=== PATIENT | female | born 1955 | race Caucasian/White ===

== ENCOUNTER 2022-06-30 09:05 | Outpatient (CLI) | payer MEDICARE, OTHER | END 2022-06-30 09:06 | disposition home or self-care (01) | LOC: LABBT 09:05 | PROVIDERS: ATTEND Surgery | DX: Z01.810 Encounter for preprocedural cardiovascular examination (principal); M50.122 Cervical disc disorder at C5-C6 level with radiculopathy; M48.02 Spinal stenosis, cervical region; Z20.822 Contact with and (suspected) exposure to COVID-19 | CPT/HCPCS: 80048; 85027; 85610; 85730; 86850; 86900; 86901; 87811; 93005; 93010 ==

== ENCOUNTER 2022-07-05 05:51 | Inpatient (IN) | payer MEDICARE, OTHER ==
[2022-06-30 10:59] LABS: Prothrombin Time 10.5 sec (9.5-12.1)
[2022-06-30 11:04] LABS: Anion Gap 13 mmol/L (10-20); BUN (Urea Nitrogen) 15 mg/dL (9.8-20.1); Calc. Creatinine Clearance 0 mL/min (70-130); Calcium 9.1 mg/dL (7.8-10.44); Carbon Dioxide 24 mmol/L (23-31); Chloride 106 mmol/L (98-107); Estimated GFR 90; Glucose 106 mg/dL (80-115); Sodium 139 mmol/L (136-145)
[2022-06-30 11:06] LABS: Hemoglobin 13.1 g/dL (12.0-15.5); Mean Corpuscular HGB CONC 33.6 g/dL (32.0-36.0); Mean Corpuscular Hemoglobin 30.7 pg (27.0-33.0); Mean Corpuscular Volume 91.3 fl (81.6-98.3); Mean Platelet Volume 10.6 fl (7.4-10.4); Platelet Count 248 10x3/uL (150-450); RBC Distribution Width 12.4 % (11.5-14.5); Red Blood Cell (RBC) Count 4.27 10x6/uL (3.90-5.03); White Blood Cell (WBC) Count 6.3 10x3/uL (3.5-10.5)
[2022-07-04 11:38] VITALS: BMI 30.9
[2022-07-05] MEDS ORDERED: Thrombin 5000 UNITS/5 ML VIAL ONE (06:43)
[2022-07-05] MEDS ORDERED: HYDROmorphone 2 MG/ML VIAL ONE (07:07)
[2022-07-05] MEDS ORDERED: Propofol 500 MG/50 ML VIAL ONE ×2 (07:07→08:17)
[2022-07-05] MEDS ORDERED: SUGAMMADEX SODIUM 200 MG/2 ML VIAL ONE (07:07)
[2022-07-05] MEDS ORDERED: CEFAZOLIN 2 GM VIAL ONE (07:18)
[2022-07-05] MEDS ORDERED: Sodium Chloride 0.9% 100 ML ONE (07:19)
[2022-07-05] MEDS ORDERED: Dexamethasone 20 MG/5 ML VIAL ONE (07:36)
[2022-07-05] MEDS ORDERED: ePHEDrine 50 MG/ML VIAL ONE (07:36)
[2022-07-05] MEDS ORDERED: PROPOFOL 200 MG/20 ML VIAL ONE (07:36)
[2022-07-05] MEDS ORDERED: Rocuronium Bromide 10 MG/ML (10ML VIAL) ONE (07:36)
[2022-07-05] MEDS ORDERED: Ondansetron PF 4 MG/2 ML Vial ONE (07:36)
[2022-07-05] MEDS ORDERED: Esmolol 100 MG/10 ML VIAL ONE (07:36)
[2022-07-05] MEDS ORDERED: Ketorolac Tromethamine 30 MG/ML VIAL ONE (07:36)
[2022-07-05] MEDS ORDERED: Lidocaine 1% MPF 2 ML VIAL ONE (07:36)
[2022-07-05] MEDS ORDERED: Phenylephrine 10 MG/ML VIAL ONE (07:36)
[2022-07-05] MEDS ORDERED: Promethazine HCl 25 MG/ML VIAL IVPB PRN (09:09)
[2022-07-05] MEDS ORDERED: Meperidine HCl/PF 25 MG/ML VIAL SLOW IVP PRN (09:09)
[2022-07-05] MEDS ORDERED: HYDROmorphone 2 MG/ML VIAL SLOW IVP PRN (09:09)
[2022-07-05] MEDS ORDERED: Acetaminophen 325 MG TAB PO PRN (09:40)
[2022-07-05] MEDS ORDERED: Morphine 2 MG/ML VIAL SLOW IVP PRN (09:40)
[2022-07-05] MEDS ORDERED: Acetaminophen/Codeine 30-300mg Tablet PO PRN (09:40)
[2022-07-05] MEDS ORDERED: diphenhydrAMINE 25 MG CAP PO PRN (09:40)
[2022-07-05] MEDS ORDERED: Ondansetron PF 4 MG/2 ML Vial IVP PRN (09:40)
[2022-07-05] MEDS ORDERED: hydrALAZINE 20 MG/ML VIAL SLOW IVP PRN (09:42)
[2022-07-05] MEDS ORDERED: Chloraseptic Spray 180 ml Bottle PO PRN (09:43)
[2022-07-05] MEDS ORDERED: Cepastat Lozenges 1 LOZ PO PRN (09:43)
[2022-07-05] MEDS ORDERED: Fentanyl 100 MCG/2 ML VIAL ONE ×2 (09:51→10:37)
[2022-07-05] MEDS ORDERED: tiZANidine HCl 4 MG TAB ONE (10:28)
[2022-07-05] MEDS: tiZANidine HCl 4 MG TAB PO PRN ×2 (10:32→18:18)
[2022-07-05] MEDS ORDERED: Ergocalciferol 1.25 MG(50,000 UNITS) CAP PO SCH (10:45)
[2022-07-05] MEDS: CEFAZOLIN 2 GM in Sodium Chloride 0.9% 100 ML IVPB SCH ×2 (15:52→21:35)
[2022-07-05] MEDS: Sodium Chloride 0.9% 1,000 ML IV SCH (16:58)
[2022-07-05] MEDS: traMADol HCl 50 MG TAB PO PRN (18:18)
[2022-07-05] MEDS: Ketorolac Tromethamine 30 MG/ML VIAL IVP PRN (19:26)
[2022-07-05] MEDS: Promethazine HCl 12.5 MG in Sodium Chloride 0.9% 50 ML IVPB PRN (20:05)
[2022-07-05] MEDS ORDERED: Non-Formulary Item 1 EACH (Cholecalciferol (Vitamin D3) [Vitamin D3] 1,250 MCG Capsule) PO SCH (21:00)
[2022-07-05] MEDS ORDERED: Melatonin 3 MG TAB PO SCH (21:00)
[2022-07-05] MEDS ORDERED: ALPRAZolam 0.25 MG TAB PO SCH ×2 (21:00)
[2022-07-05] MEDS: Melatonin 3 MG TAB PO PRN (21:36)
[2022-07-05] MEDS: ALPRAZolam 0.25 MG TAB PO PRN (21:36)
[2022-07-06] MEDS: Sodium Chloride 0.9% 1,000 ML IV SCH ×2 (04:09→06:04)
[2022-07-06] MEDS: Levothyroxine Sodium 112 MCG TAB PO SCH (06:03)
[2022-07-06] MEDS: Promethazine HCl 12.5 MG in Sodium Chloride 0.9% 50 ML IVPB PRN (06:04)
[2022-07-06] MEDS: CEFAZOLIN 2 GM in Sodium Chloride 0.9% 100 ML IVPB SCH ×3 (06:04→20:49)
[2022-07-06] MEDS: HYDROcodone/Acetaminophen 7.5/325 mg Tablet PO PRN ×3 (06:07→20:45)
[2022-07-06] MEDS ORDERED: [UNRECOGNIZED DRUG - MIXTURE] PO SCH (09:00)
[2022-07-06] MEDS ORDERED: [UNRECOGNIZED DRUG - MIXTURE] PO SCH (09:00)
[2022-07-06] MEDS ORDERED: FLUoxetine HCl 20 MG CAP PO SCH (09:00)
[2022-07-06] MEDS ORDERED: Ezetimibe 10 MG TAB PO SCH (09:00)
[2022-07-06] MEDS ORDERED: [UNRECOGNIZED DRUG - OTHER] PO SCH (09:00)
[2022-07-06] MEDS: Magnesium Oxide 250 MG TAB PO SCH (09:13)
[2022-07-06] MEDS: FLUoxetine HCl 20 MG CAP PO SCH (09:13)
[2022-07-06] MEDS: Ezetimibe 10 MG TAB PO SCH (09:13)
[2022-07-06] MEDS: Icosapent Ethyl 1 GM CAPSULE PO SCH (09:14)
[2022-07-06] MEDS: Ketorolac Tromethamine 30 MG/ML VIAL IVP PRN (17:05)
[2022-07-06] MEDS: tiZANidine HCl 4 MG TAB PO PRN (17:10)
[2022-07-06] MEDS: traMADol HCl 50 MG TAB PO PRN (18:43)
[2022-07-06] MEDS: ALPRAZolam 0.25 MG TAB PO PRN (20:44)
[2022-07-06] MEDS: Melatonin 3 MG TAB PO PRN (20:45)
[2022-07-07] MEDS: Sodium Chloride 0.9% 1,000 ML IV SCH (00:50)
[2022-07-07] MEDS: HYDROcodone/Acetaminophen 7.5/325 mg Tablet PO PRN (04:09)
[2022-07-07] MEDS: Levothyroxine Sodium 112 MCG TAB PO SCH (06:00)
[2022-07-07] MEDS: CEFAZOLIN 2 GM in Sodium Chloride 0.9% 100 ML IVPB SCH (06:00)
[2022-07-07] MEDS ORDERED: Ketorolac Tromethamine 30 MG/ML VIAL IVP SCH (08:15)
[2022-07-07] MEDS: Icosapent Ethyl 1 GM CAPSULE PO SCH (08:41)
[2022-07-07] MEDS: Ezetimibe 10 MG TAB PO SCH (08:43)
[2022-07-07] MEDS: FLUoxetine HCl 20 MG CAP PO SCH (08:43)
[2022-07-07] MEDS: Magnesium Oxide 250 MG TAB PO SCH (08:43)
[2022-07-07 08:46] VITALS: BP 131/76; TEMP 97.3
== END 2022-07-07 10:35 | disposition home or self-care (01) | DRG 472 ==
LOC: SDC 05:51 → T4-B 09:46 → OBSVTOIN 07-06 08:16
PROVIDERS: ADMIT Surgery; ATTEND Surgery
PROC: 0RG20A0 Fusion of 2 or more Cervical Vertebral Joints with Interbody Fusion Device, Anterior Approach, Anterior Column, Open Approach (ICD-10-PCS; principal; 2022-07-05)
PROC: 0RB30ZZ Excision of Cervical Vertebral Disc, Open Approach (ICD-10-PCS; 2022-07-05)
PROC: 00NW0ZZ Release Cervical Spinal Cord, Open Approach (ICD-10-PCS; 2022-07-05)
PROC: 01N10ZZ Release Cervical Nerve, Open Approach (ICD-10-PCS; 2022-07-05)
DX: M48.02 Spinal stenosis, cervical region (principal); G99.2 Myelopathy in diseases classified elsewhere; M54.12 Radiculopathy, cervical region; E78.5 Hyperlipidemia, unspecified; G43.909 Migraine, unspecified, not intractable, without status migrainosus; E03.9 Hypothyroidism, unspecified; F32.A Depression, unspecified; F41.9 Anxiety disorder, unspecified; Z85.3 Personal history of malignant neoplasm of breast; Z92.3 Personal history of irradiation; Z90.710 Acquired absence of both cervix and uterus; Z90.722 Acquired absence of ovaries, bilateral
CPT/HCPCS: 76000; 80048; 85027; 85610; 85730; 86850; 86900; 86901; 87811; 96374; 96375; 96376; C1713; G0378; J0690; J1100; J1170; J1885; J2270; J2370; J2405; J2550; J2704; J3010; J3490; J7050